=== PATIENT | female | born 1980 | race Two or more races ===

== ENCOUNTER 2019-02-15 19:29 | Emergency (ER) | payer BC ==
[~2019-02-15] VITALS: Ht 165.1 cm; Wt 72.6 kg
[2019-02-15 19:54] VITALS: BP 132/62
[2019-02-15] MEDS ORDERED: HYDROcodone-ACET 5/325MG TAB PO ONE (23:30)
== END 2019-02-15 23:39 | disposition home or self-care (01) ==
LOC: ER 19:35
DX: S46.911A Strain of unspecified muscle, fascia and tendon at shoulder and upper arm level, right arm, initial encounter (principal); M19.90 Unspecified osteoarthritis, unspecified site; X58.XXXA Exposure to other specified factors, initial encounter; Y93.89 Activity, other specified; Y99.8 Other external cause status; Y92.89 Other specified places as the place of occurrence of the external cause